=== PATIENT | male | born 1960 | race Caucasian/White ===

== ENCOUNTER → 2016-12-12 | Day surgery (SDC) | payer OTHER ==
[~2016-12-12] MED LIST: ADDERALL20 M1 PO; ALLEGRA PO; AMBIEN10 MG PO; BAYER ASPIRIN325 M1 PO; BRINTELLIX10 MG PO; CELEXA10 MG PO; COZAAR100 MG PO; GLUCOTROL PO; JANUVIA PO; KEPPRA250 MG PO; LAMICTAL150 MG PO; LASIX PO; NEURONTIN600 MG PO; OXYCODONE HCL10 MG PO; TRILEPTAL PO; VIT B COMPLEX IM; VITAMIN B-COMPL1 CA1 PO; VITAMIN D5000 UNIT PO; VITAMIN D50000 UNIT PO; WELLBUTRIN PO; XANAX1 MG PO; ZOFRAN PO
--- NOTE | ~2016-12-12 | ECT ---
Unit #: [id number] #: [id number] Patient: ARUN LUU [id number] [place] [address] [id number] O MR#: [id number] NAME: ARUN LUU. ROOM: Age: 56 Sex: M Admission Date: 12/12/2016 : 1960 Discharge Date: Attending Physician: Alfred Leonardo M.D. Primary Care Physician: Radha Coates M.D. ECT NOTE DATE OF TREATMENT 12/12/2016 TREATMENT NUMBER Five maintenance. TREATMENT MODALITY Unilateral ECT. ANESTHESIA Glycopyrrolate: 0.2 mg. Brevital: 150 mg. Succinylcholine: 100 mg. TREATMENT PARAMETERS Charge: 480 millicoulombs Pulse Width: 1.0 milliseconds Frequency: 50 Hertz Duration: 6 seconds Current: 800 milliamps TREATMENT DELIVERED Energy: 98.9 joules Impedance: 247 ohms Charge: 480 millicoulombs SEIZURE MEASURES OMS: 16 seconds EE seconds COMPLICATIONS None. SUMMARY The patient had a good seizure with OMS and EEG measures. His depression started returning after about three weeks from his last ECT, giving us about a week and half of symptoms. So we will tighten his ECT maintenance schedule up to every three weeks and see how he does. DIFFERENTIAL DIAGNOSES AXIS I: F33.2. AXIS II: Deferred. Unit #: [id number] #: [id number] Patient: ARUN LUU AXIS III: Nothing acute. AXIS IV: AXIS V: Dictated by... Alfred Leonardo M.D. TERESA/carl TD: 12/13/2016 12:20 JOB #: [id number] ECT NOTE X Alfred Leonardo MD <ELECTRONICALLY SIGNED> 06/06/17 1702 X ECT
== END | disposition home or self-care (01) ==
LOC: CSUR 07:11
DX: F33.2 Major depressive disorder, recurrent severe without psychotic features (principal); E11.9 Type 2 diabetes mellitus without complications; Z79.84 Long term (current) use of oral hypoglycemic drugs; I10 Essential (primary) hypertension; E66.01 Morbid (severe) obesity due to excess calories; Z68.41 Body mass index [BMI] 40.0-44.9, adult; G47.33 Obstructive sleep apnea (adult) (pediatric); G40.909 Epilepsy, unspecified, not intractable, without status epilepticus; D49.6 Neoplasm of unspecified behavior of brain; R11.0 Nausea; M54.9 Dorsalgia, unspecified; G89.29 Other chronic pain; J45.909 Unspecified asthma, uncomplicated; Z79.899 Other long term (current) drug therapy; Z98.890 Other specified postprocedural states; Z87.898 Personal history of other specified conditions; Z88.0 Allergy status to penicillin; Z88.2 Allergy status to sulfonamides; Z91.013 Allergy to seafood
CPT/HCPCS: 82947; 90870; J0330; J1885; J2405

== ENCOUNTER → 2017-01-02 | Day surgery (SDC) | payer OTHER ==
--- NOTE | ~2017-01-02 | ECT ---
Unit #: [id number] #: [id number] Patient: ARUN LUU [id number] [address] [address] [id number] O MR#: [id number] NAME: ARUN LUU. ROOM: Age: 56 Sex: M Admission Date: 01/02/2017 : 1960 Discharge Date: Attending Physician: Alfred Leonardo M.D. Primary Care Physician: Radha Coates M.D. ECT NOTE DATE OF TREATMENT 01/02/2017 TREATMENT NUMBER Six (maintenance) TREATMENT MODALITY Unilateral ECT. ANESTHESIA Glycopyrrolate: 0.2 mg Brevital: 150 mg Succinylcholine: 100 mg TREATMENT PARAMETERS Charge: 480 millicoulombs Pulse Width: 1.0 milliseconds Frequency: 50 Hertz Duration: 6 seconds Current: 800 milliamps TREATMENT DELIVERED Energy: 97.9 joules Impedance: 246 ohms Charge: 480 millicoulombs SEIZURE MEASURES OMS: 11 seconds EE seconds COMPLICATIONS None. SUMMARY The patient had a fairly short seizure with OMS and EEG measures but it is fairly similar to his previous ECT. We will continue his maintenance ECT now in three weeks and I will adjust his energy up a little bit and see if we can improve his seizure duration. DIFFERENTIAL DIAGNOSES AXIS I: F33.2 AXIS II: Deferred. AXIS III: Nothing acute. Unit #: [id number] #: [id number] Patient: ARUN LUU AXIS IV: AXIS V: Dictated by... Alex Pierce/aristeo TD: 01/03/2017 12:57 JOB #: [id number] ECT NOTE Page 1 of 1 X Alfred Leonardo MD <ELECTRONICALLY SIGNED> 06/06/17 1702 X ECT
== END | disposition home or self-care (01) ==
LOC: CSUR 06:33
DX: F33.2 Major depressive disorder, recurrent severe without psychotic features (principal); I10 Essential (primary) hypertension; R11.0 Nausea; E11.9 Type 2 diabetes mellitus without complications; Z79.84 Long term (current) use of oral hypoglycemic drugs; E66.9 Obesity, unspecified; J45.909 Unspecified asthma, uncomplicated; G40.909 Epilepsy, unspecified, not intractable, without status epilepticus; G47.30 Sleep apnea, unspecified; M54.9 Dorsalgia, unspecified; G89.29 Other chronic pain; Z87.898 Personal history of other specified conditions; Z91.013 Allergy to seafood; Z88.2 Allergy status to sulfonamides; Z88.0 Allergy status to penicillin
CPT/HCPCS: 82947; 90870; J1885; J2405

== ENCOUNTER → 2017-01-23 | Day surgery (SDC) | payer OTHER ==
--- NOTE | ~2017-01-23 | ECT ---
Unit #: [id number] #: [id number] Patient: ARUN LUU [id number] [place] [address] [id number] O MR#: [id number] NAME: ARUN LUU. ROOM: Age: 56 Sex: M Admission Date: 01/23/2017 : 1960 Discharge Date: Attending Physician: Alfred Leonardo M.D. Primary Care Physician: Radha Coates M.D. ECT NOTE DATE OF TREATMENT 01/23/2017 TREATMENT NUMBER 7 maintenance. TREATMENT MODALITY Unilateral ECT. ANESTHESIA Glycopyrrolate: 0.2 mg. Brevital: 150 mg. Succinylcholine: 100 mg. TREATMENT PARAMETERS Charge: 480 millicoulombs Pulse Width: 1.0 milliseconds Frequency: 50 Hertz Duration: 6 seconds Current: 800 milliamps TREATMENT DELIVERED Energy: 104.1 joules Impedance: 262 ohms Charge: 480 millicoulombs SEIZURE MEASURES OMS: 23 seconds EE seconds COMPLICATIONS None. SUMMARY The patient had a good seizure with both OMS and EEG measures. Depression seem to be pretty well controlled with the ECTs every two weeks, so we will continue his ECTs at a two week interval for a while and just continue to follow with his primary psychiatrist. DIFFERENTIAL DIAGNOSES AXIS I: F33.2. AXIS II: Deferred. Unit #: [id number] #: [id number] Patient: ARUN LUU AXIS III: Nothing acute. Dictated by... Alex Pierce/carl TD: 01/24/2017 09:53 JOB #: [id number] ECT NOTE Page 1 of 1 X Alfred Leonardo MD <ELECTRONICALLY SIGNED> 05/15/17 1207 X ECT
== END | disposition home or self-care (01) ==
LOC: CSUR 07:02
DX: F33.2 Major depressive disorder, recurrent severe without psychotic features (principal); R11.0 Nausea; E11.9 Type 2 diabetes mellitus without complications; Z79.84 Long term (current) use of oral hypoglycemic drugs; E66.9 Obesity, unspecified; I10 Essential (primary) hypertension; G47.30 Sleep apnea, unspecified; J45.909 Unspecified asthma, uncomplicated; Z79.899 Other long term (current) drug therapy; R56.9 Unspecified convulsions; Z85.72 Personal history of non-Hodgkin lymphomas; Z88.2 Allergy status to sulfonamides; Z91.013 Allergy to seafood; Z88.0 Allergy status to penicillin
CPT/HCPCS: 82947; 90870; J1885; J2405

== ENCOUNTER → 2017-02-17 | Day surgery (SDC) | payer OTHER ==
--- NOTE | ~2017-02-17 | ECT ---
Unit #: [id number] #: [id number] Patient: ARUN LUU [id number] [address] [address] [id number] O MR#: [id number] NAME: ARUN LUU. ROOM: Age: 56 Sex: M Admission Date: 02/17/2017 : 1960 Discharge Date: Attending Physician: Alfred Leonardo M.D. Primary Care Physician: Radha Coates M.D. ECT NOTE DATE OF TREATMENT 02/17/2017 TREATMENT NUMBER 8, maintenance TREATMENT MODALITY Unilateral ECT. ANESTHESIA Glycopyrrolate: 0.2 mg. Brevital: 150 mg. Succinylcholine: 100 mg. TREATMENT PARAMETERS Charge: 480 millicoulombs Pulse Width: 1.0 milliseconds Frequency: 50 Hertz Duration: 6 seconds Current: 800 milliamps TREATMENT DELIVERED Energy: 99.6 joules Impedance: 215 ohms Charge: 480 millicoulombs SEIZURE MEASURES OMS: 7 seconds EE seconds COMPLICATIONS None. SUMMARY The patient had a short seizure by both OMS and EEG measures. He seemed a little bit sedated this morning. He indicated that he had taken hydrocodone about 4 o'clock in the morning, but he had not had any sleep in the last 3 days. Given the fact that he is on benzodiazepines but denied taking this morning, it seems fairly apparently to us given his sleep depravation he would had a longer seizure had he not been taking his benzos, so very likely he had taken 1 or more of his benzos this morning before showing up for his treatment. Nevertheless, we will get him back in 2 weeks for another maintenance ECT. Unit #: [id number] #: [id number] Patient: ARUN LUU DIFFERENTIAL DIAGNOSES AXIS I: F33.2 AXIS II: F60.9 AXIS III: Nothing acute. Dictated by... Alex Pierce/yao TD: 02/17/2017 10:27 JOB #: [id number] ECT NOTE Page 1 of 1 X Alfred Leonardo MD <ELECTRONICALLY SIGNED> 05/15/17 1207 X ECT
== END | disposition home or self-care (01) ==
LOC: CSUR 08:16
DX: F33.2 Major depressive disorder, recurrent severe without psychotic features (principal); F60.9 Personality disorder, unspecified; G43.909 Migraine, unspecified, not intractable, without status migrainosus; G40.909 Epilepsy, unspecified, not intractable, without status epilepticus; E11.9 Type 2 diabetes mellitus without complications; Z79.84 Long term (current) use of oral hypoglycemic drugs; E66.9 Obesity, unspecified; Z68.41 Body mass index [BMI] 40.0-44.9, adult; I10 Essential (primary) hypertension; J45.909 Unspecified asthma, uncomplicated; M54.9 Dorsalgia, unspecified; Z88.2 Allergy status to sulfonamides; Z91.013 Allergy to seafood; Z88.0 Allergy status to penicillin; Z98.890 Other specified postprocedural states
CPT/HCPCS: 82947; 90870; J1885; J2405